=== PATIENT | female | born 1955 | race Caucasian/White ===

== ENCOUNTER 2022-03-24 13:25 | Outpatient (CLI) | payer BC, SELFPAY ==
--- NOTE | 2022-03-24 13:40 | CRLHL7_ITS ---
For Patients: As a result of the Century Cures Act, medical imaging exams and procedure reports are released immediately into your electronic medical record. You may view this report before your referring provider. If you have questions, please contact your health care provider. BILATERAL SCREENING MAMMOGRAM WITH COMPUTER-AIDED DETECTION TECHNIQUE: CC and MLO views were obtained. These mammographic images have been obtained using full-field digital technique. These mammographic images were interpreted with the benefit of computer-aided detection. COMPARISON FILM: 02/25/21, 01/09/20, 08/25/18. FINDINGS: There are scattered areas of fibroglandular density IMPRESSION: There is no radiographic evidence for malignancy. ASSESSMENT: BI-RADS Category 1: Negative RECOMMENDATION: Routine screening mammogram in 1 year. A lay language report of this examination will be provided to the patient. Juan Jose Loaiza M.D. Diagnostic/Nuclear Medicine Radiologist [email or web address] KIRSTEN/ely Transcribed: 3:17 p.m. MAREN/Dictated by: Juan Jose Loaiza MD @ 03/25/2022 8:18:00 AM (Electronically Signed)
== END 2022-03-24 13:26 | disposition home or self-care (01) ==
LOC: MAMMO 13:26
PROVIDERS: PCP Family Medicine; Visit Provider Family Medicine
DX: Z12.31 Encounter for screening mammogram for malignant neoplasm of breast (principal)
CPT/HCPCS: 77063; 77067

== ENCOUNTER 2022-11-13 07:30 | Outpatient (CLI) | payer MEDICARE, BC, SELFPAY | END 2022-11-13 07:31 | disposition home or self-care (01) | PROVIDERS: PCP Family Medicine; Referring Provider Family Medicine; Visit Provider Family Medicine | DX: I10 Essential (primary) hypertension (principal); E78.5 Hyperlipidemia, unspecified; Z13.1 Encounter for screening for diabetes mellitus | CPT/HCPCS: 80053; 80061 ==

== ENCOUNTER 2022-12-11 12:51 | Outpatient (CLI) | payer MEDICARE, BC, SELFPAY ==
--- NOTE | 2022-12-11 13:00 | CRLHL7_ITS ---
For Patients: As a result of the Century Cures Act, medical imaging exams and procedure reports are released immediately into your electronic medical record. You may view this report before your referring provider. If you have questions, please contact your health care provider. DXA BONE MINERAL DENSITY STUDY Reason for exam: Asymptomatic menopausal state, screening. Current height (in): 61. Weight (lb): 220. Menopause age: 57. Ethnicity: White. 1. Have you had a previous hip or vertebral fracture? No. 2. Have you had any fractures during your adult life which did not result from significant trauma (e.g., auto accident)? No. 3. Did either of your parents have a hip fracture? No. 4. Do you smoke? No. 5. Have you ever taken Glucocorticoids? No. 6. Do you have rheumatoid arthritis? No. 7. Do you have secondary osteoporosis? No. 8. Do you drink 3 or more alcoholic drinks per day? No. 9. Are you being treated for osteoporosis? No. 10. Have you ever taken any of the following medications: Actonel, Evista, Fosamax, Miacalcin, Reclast, Boniva, Forteo, HRT (i.e., estrogen/hormone therapy), Protelos, Prolia, Vitamin D, Calcium, other ??? please specify. ANSWER: Yes, vitamin D and calcium. 11. Do you have any of the following medical conditions: Anorexia or bulimia, asthma or emphysema, end stage renal disease, hyperparathyroidism, any seizure disorders, cancer, inflammatory bowel diseases, hysterectomy, other ??? please specify. ANSWER: No. 12. What was your maximum height (inches)? 63. 13. Do you perform weight bearing exercise regularly? No. 14. Do you regularly consume dairy products? No. 15. Do you drink caffeinated beverages? Yes. If female: 16. At what age did your period start? 14. 17. Are you premenopausal? No. 18. How many full-term pregnancies have you had? 3. 19. Have you ever missed your period for more than 6 months in a row (not including or menopause)? No. TECHNIQUE: Bone mineral density study was performed using the [employer]. FINDINGS: The results of the study expressed as bone mineral density (BMD) are as follows: Lumbar spine L1 to L4: BMD: 1.089 g/cm2. T-score: 0.4. Z-score: 2.2 Neck Left: BMD: 0.690 g/cm2. T-score: -1.4. Z-score: 0.1 Right: BMD: 0.751 g/cm2. T-score: -0.9. Z-score: 0.7 Total Left: BMD: 0.936 g/cm2. T-score: -0.1. Z-score: 1.2 Right: BMD: 0.913 g/cm2. T-score: -0.2. Z-score: 1.0 IMPRESSION: Osteopenia. FRAX 10-year Fracture Risk Major Osteoporotic Fracture: 7.7% Hip Fracture: 0.7% Reported Risk Factors: [place] () Neck BMD=0.690, BMI= 41.6 Jovani Bhardwaj M.D. Diagnostic Radiologist [email or web address] ASIA/sonido head/Dictated by: Jovani Bhardwaj MD @ 12/12/2022 9:20:00 AM (Electronically Signed)
== END 2022-12-11 12:52 | disposition home or self-care (01) ==
LOC: RAD 12:52
PROVIDERS: PCP Family Medicine; Visit Provider Family Medicine
DX: Z13.820 Encounter for screening for osteoporosis (principal); M85.89 Other specified disorders of bone density and structure, multiple sites; Z78.0 Asymptomatic menopausal state
CPT/HCPCS: 77080

== ENCOUNTER 2023-02-20 07:21 | Outpatient (CLI) | payer MEDICARE, BC, SELFPAY | END 2023-02-20 07:22 | disposition home or self-care (01) | LOC: NFLDREF 02-24 12:20 | PROVIDERS: PCP Family Medicine; Referring Provider Family Medicine; Visit Provider Family Medicine | DX: I10 Essential (primary) hypertension (principal); E78.5 Hyperlipidemia, unspecified | CPT/HCPCS: 80053; 80061 ==

== ENCOUNTER 2023-06-01 07:25 | Outpatient (CLI) | payer MEDICARE, BC, SELFPAY | END 2023-06-01 07:26 | disposition home or self-care (01) | LOC: NFLDREF 06-05 11:18 | PROVIDERS: PCP Family Medicine; Referring Provider Family Medicine; Visit Provider Family Medicine | DX: E78.5 Hyperlipidemia, unspecified (principal) | CPT/HCPCS: 80061 ==

== ENCOUNTER 2023-08-18 11:22 | Outpatient (CLI) | payer MEDICARE, BC, SELFPAY ==
--- NOTE | 2023-08-18 11:30 | MM_ITS ---
Patient: LULU GRIAMLDO Facility:?[facility] Patient ID:?[id number] Site Patient ID:?[id number]. Site :?[id number] Study:?XRay-Breast Bilateral 3D screening mammogram w/cad-08/18/2023 11:54:00 AM Ordering Physician:NICOLE Final Report: BILATERAL SCREENING MAMMOGRAM WITH COMPUTER-AIDED DETECTION AND TOMOSYNTHESIS TECHNIQUE: CC and MLO views were obtained. These mammographic images have been obtained using full-field digital technique. These mammographic images were interpreted with the benefit of computer-aided detection. Breast Tomosynthesis was used in this interpretation. COMPARISON FILM: 03/24/22, 02/25/21, 01/09/20. FINDINGS: There are scattered areas of fibroglandular density. IMPRESSION: There is no radiographic evidence for malignancy. ASSESSMENT: BI-RADS Category 1: Negative RECOMMENDATION: Routine screening mammogram in 1 year. A lay language report of this examination will be provided to the patient. Jovani Bhardwaj M.D. Diagnostic Radiologist [email or web address] DSM/sp R& Transcribed: 4:23 p.m. SP/Dictated by: Jovani Bhardwaj MD @ 08/21/2023 12:23:00 PM Signed by:?Jovani Bhardwaj MD @08/21/2023 4:27:52 PM (Electronic Signature)
== END 2023-08-18 11:23 | disposition home or self-care (01) ==
LOC: MAMMO 11:23
PROVIDERS: PCP Family Medicine; Visit Provider Family Medicine
DX: Z12.31 Encounter for screening mammogram for malignant neoplasm of breast (principal)
CPT/HCPCS: 77063; 77067

== ENCOUNTER 2023-11-17 07:45 | Outpatient (CLI) | payer MEDICARE, BC, SELFPAY | END 2023-11-17 07:46 | disposition home or self-care (01) | LOC: NFLDREF 11-20 09:43 | PROVIDERS: PCP Family Medicine; Referring Provider Family Medicine; Visit Provider Family Medicine | DX: E78.5 Hyperlipidemia, unspecified (principal); I10 Essential (primary) hypertension; M81.0 Age-related osteoporosis without current pathological fracture; R53.83 Other fatigue; Z13.29 Encounter for screening for other suspected endocrine disorder | CPT/HCPCS: 80053; 80061; 82306; 84443 ==

== ENCOUNTER 2024-11-08 07:49 | Outpatient (CLI) | payer MEDICARE, BC, SELFPAY ==
--- NOTE | 2024-11-08 08:40 | P.ANES_ITS ---
Anesthesia Charges Start Date/Time Anesthesia Start Date: 11/08/24 Anesthesia Start Time: 08:15 Stop Date/Time Anesthesia Stop Date: 11/08/24 Anesthesia Stop Time: 08:40 Coding CPT Codes CPT Codes: ANES LWR INTST NDSC NOS - [id number] ([id number]) P3 - PATIENT W/SEVERE SYS DISEASE, QK - RELEASE OF INFORMATION CLERK 2-4 CNCRNT ANES PROC, QX - QUILLER RUNNER SVC W/ MD MED DIRECTION
--- NOTE | 2024-11-08 08:40 | W.ANESCHARGE ---
Anesthesia Charges Start Date/Time Anesthesia Start Date: 11/08/24 Anesthesia Start Time: 08:15 Stop Date/Time Anesthesia Stop Date: 11/08/24 Anesthesia Stop Time: 08:40 Coding CPT Codes CPT Codes: ANES LWR INTST NDSC NOS - [id number] ([id number]) P3 - PATIENT W/SEVERE SYS DISEASE, QK - TOWER AIR TRAFFIC CONTROL SPECIALIST 2-4 CNCRNT ANES PROC, QX - QUALITY CONTROL ANALYST SVC W/ MD MED DIRECTION
--- NOTE | 2024-11-08 09:26 | P.ANES_ITS ---
Anesthesia Charges Start Date/Time Anesthesia Start Date: 11/08/24 Anesthesia Start Time: 08:15 Stop Date/Time Anesthesia Stop Date: 11/08/24 Anesthesia Stop Time: 08:40 Coding CPT Codes CPT Codes: ANES LWR INTST NDSC NOS - [id number] ([id number]) P3 - PATIENT W/SEVERE SYS DISEASE, QK - METAL MOVER 2-4 CNCRNT ANES PROC, QX - PHYSICAL PLANT MANAGER SVC W/ MD MED DIRECTION
--- NOTE | 2024-11-08 09:26 | W.ANESCHARGE ---
Anesthesia Charges Start Date/Time Anesthesia Start Date: 11/08/24 Anesthesia Start Time: 08:15 Stop Date/Time Anesthesia Stop Date: 11/08/24 Anesthesia Stop Time: 08:40 Coding CPT Codes CPT Codes: ANES LWR INTST NDSC NOS - [id number] ([id number]) P3 - PATIENT W/SEVERE SYS DISEASE, QK - MOVING PICTURE PRODUCER 2-4 CNCRNT ANES PROC, QX - CLUBHOUSE MANAGER SVC W/ MD MED DIRECTION
== END 2024-11-08 07:50 | disposition home or self-care (01) ==
PROVIDERS: PCP Family Medicine; Visit Provider Internal Medicine
DX: Z12.11 Encounter for screening for malignant neoplasm of colon (principal); Z80.0 Family history of malignant neoplasm of digestive organs; D12.3 Benign neoplasm of transverse colon; K57.30 Diverticulosis of large intestine without perforation or abscess without bleeding
CPT/HCPCS: 00811; 45380; J2704

== ENCOUNTER 2024-11-29 07:59 | Outpatient (CLI) | payer MEDICARE, BC, SELFPAY | END 2024-11-29 08:00 | disposition home or self-care (01) | LOC: NFLDREF 12-01 12:46 | PROVIDERS: PCP Family Medicine; Referring Provider Family Medicine; Visit Provider Family Medicine | DX: E78.5 Hyperlipidemia, unspecified (principal); I10 Essential (primary) hypertension; R73.09 Other abnormal glucose; M85.80 Other specified disorders of bone density and structure, unspecified site | CPT/HCPCS: 80053; 80061; 82306 ==

== ENCOUNTER 2024-11-30 13:05 | Outpatient (CLI) | payer MEDICARE, BC, SELFPAY ==
--- NOTE | 2024-11-30 13:20 | CRLHL7_ITS ---
For Patients: As a result of the Century Cures Act, medical imaging exams and procedure reports are released immediately into your electronic medical record. You may view this report before your referring provider. If you have questions, please contact your health care provider. INDICATION: BILATERAL SCREENING MAMMOGRAM, ASYMPTOMATIC 69 Y/O FEMALE COMPARISON: 08/18/2023, 03/24/2022, 02/25/2021 TECHNIQUE: Digital mammogram in CC and MLO projections including computer-aided detection (CAD) and tomosynthesis. BREAST COMPOSITION: There are scattered areas of fibroglandular density. FINDINGS: No suspicious findings. ASSESSMENT: BI-RADS 1 Negative RECOMMENDATION: Annual screening mammogram. A lay language report of this examination will be provided to the patient. Dictated by: Jovani Bhardwaj MD @ 12/01/2024 13:10:06 (Electronically Signed)
== END 2024-11-30 13:06 | disposition home or self-care (01) ==
LOC: MAMMO 13:06
PROVIDERS: PCP Family Medicine; Visit Provider Family Medicine
DX: Z12.31 Encounter for screening mammogram for malignant neoplasm of breast (principal)
CPT/HCPCS: 77063; 77067